=== PATIENT | female | born 1975 | race Caucasian/White ===

== ENCOUNTER → 2016-08-04 | Outpatient (CLI) | payer OTHER ==
[~2016-08-04] MED LIST: ALPRAZOLAM PO; AMITRYPTYLINE PO; ANTI-FUNGAL CR113 GM TOP; BUSPAR15 M2 PO; BUSPIRONE HCL10 MG PO; CARDIZEM60 M1 PO; CIPRO PO; CLINDACIN P1 EACH PO; DETROL PO; DIFLUCAN PO; FLEXERIL10 MG PO; GEODON80 MG PO; HUMULIN N100 U/ML SUBQ; INDERAL20 MG PO; LANTUS100 U/ML SUBQ; METHADONE HCL10 MG PO; METHADONE PO; MOTRIN20 MG/ML PO; NEURONTIN600 MG PO; NEURONTIN800 MG PO; NOVOLOG100 U/ML SUBQ; OMNICEF300 MG PO; PHENERGAN25 M1 PO; PREDNISONE10 MG PO
--- NOTE | ~2016-08-04 | PFT ---
[id number] [facility] [address]. [place], [place] [address] [id number] O MR#: [id number] NAME: JERARDO PAUL ROOM: SEX: F STUDY DATE/TIME: : 1975 AGE: STUDY DESCRIPTION: Attending Physician: Rekha Squires M.D. Referring Physician: Rekha Squires M.D. Primary Care Physician: Rekha Squires M.D. PULMONARY DIAGNOSTIC REPORT EXAM Pulmonary Function Test DESCRIPTION Spirometry is reviewed. FEV1 is 68, FVC is 80, ratio is 69. This is consistent with moderate air flow obstruction. No significant bronchodilator response. Lung volume consistent with air trapping. DLCO is substantially reduced. Dictated by... Joyti Franco/sarah TD: 08/18/2016 07:08 JOB #: [id number] PULMONARY DIAGNOSTIC REPORT
== END | disposition home or self-care (01) ==
LOC: CRC 10:41
DX: R06.02 Shortness of breath (principal)
CPT/HCPCS: 94060; 94726; 94729

== ENCOUNTER → 2016-08-10 | Outpatient (CLI) | payer OTHER ==
--- NOTE | ~2016-08-10 | CR63 ---
[facility] A Service of [facility] RADIOLOGY TEXT RESULTS PATIENT: JERARDO PAUL [id number] : [birth year] UNIT #: [id number] AGE: [address]: Rekha Squires MD SEX: F ORDER DR: [id number] [facility]. [place], [place] [address] [id number] O MR#: [id number] Acc #: [id number] NAME: JERARDO PAUL : 1975 SEX: F STUDY DATE/TIME: 08/10/2016 16:11 UNIT: [facility] ROOM: STUDY DESCRIPTION: CR Chest 2 View Attending Physician: Rekha Squires M.D. Referring Physician: Rekha Squires M.D. Ordering Physician: Rekha Squires M.D. Primary Care Physician: Rekha Squires M.D. MEDICAL IMAGING REPORT This report is preliminary unless electronic signature is present EXAM PA and lateral chest. DATE OF EXAM 08/10/2016 INDICATION Lung nodule follow up. Cough since November 2015. COMPARISON STUDIES This is compared with a chest x-ray 09/14/2010, and comparison CT chest with pulmonary embolus protocol from 10/27/2015. FINDINGS PA and lateral views of the chest were obtained. The heart size and vascularity are normal, and the lungs are clear except for perhaps a calcified granuloma of the right base. Bones are unremarkable. IMPRESSION No active disease. Dictated by... Dayton Phillips M.D. THIS IS AN ELECTRONICALLY VERIFIED REPORT Dayton Phillips M.D. at 08/11/2016 6:04 AM FERNANDO/lucinda TD: 08/10/2016 23:28 JOB #: [id number] MEDICAL IMAGING REPORT [facility] A Service of [facility] RADIOLOGY TEXT RESULTS PATIENT: JERARDO PAUL LOCATION: [facility] #: [id number] : [birth year] UNIT #: [id number] AGE: [address]: Rekha Squires MD SEX: F ORDER DR: PIA
== END | disposition home or self-care (01) ==
LOC: CRAD 15:58
DX: R91.1 Solitary pulmonary nodule (principal); Z20.89 Contact with and (suspected) exposure to other communicable diseases
CPT/HCPCS: 36415; 71020; 82785

== ENCOUNTER → 2016-08-30 | Outpatient (CLI) | payer OTHER ==
--- NOTE | ~2016-08-30 | CT57 ---
[facility] A Service of [facility] RADIOLOGY TEXT RESULTS PATIENT: JERARDO PAUL LOCATION: [facility] #: [id number] : [birth year] UNIT #: [id number] AGE: [address]: Rekha Squires MD SEX: F ORDER DR: [id number] [facility]. [place], [place] [address] [id number] O MR#: [id number] [facility] #: [id number] NAME: JERARDO PAUL : 1975 SEX: F STUDY DATE/TIME: 08/30/2016 16:11 UNIT: [facility] ROOM: STUDY DESCRIPTION: CT Chest Wo Cont Attending Physician: Rekha Squires M.D. Referring Physician: Rekha Squires M.D. Ordering Physician: Rekha Squires M.D. Primary Care Physician: Mejia Umanzor M.D. MEDICAL IMAGING REPORT This report is preliminary unless electronic signature is present EXAM CT chest without contrast INDICATION Follow up pulmonary opacities and adenopathy. PROCEDURE Unenhanced CT of the chest. COMPARISON 10/27/2015. TECHNIQUE This CT examination was performed with one or more of the following radiation dose reduction techniques: automatic exposure control, adjustment of mA and/or kV according to patient size, and iterative reconstruction. FINDINGS Emphysema. Redemonstration of predominantly peripheral ground-glass opacity and suggestion of mild interstitial thickening/scarring. There is no dense consolidation. There is no pleural fluid. No pneumothorax. The previously demonstrated adenopathy is less apparent on this study. It may in part be related to the lack of contrast. No acute findings in the included upper abdomen. No aggressive appearing bone lesion. IMPRESSION 1. No acute findings. 2. Redemonstration of mild peripheral ground-glass opacity and mild interstitial thickening or scarring. Appearance is very similar to the previous study. It is slightly improved in the lung bases. 3. No new dense consolidation. 4. Background emphysema. [facility] A Service of [facility] RADIOLOGY TEXT RESULTS PATIENT: JERARDO PAUL LOCATION: [facility] #: [id number] : [birth year] UNIT #: [id number] AGE: [address]: Rekha Squires MD SEX: F ORDER DR: 5. The previously demonstrated hilar and mediastinal lymph nodes are slightly smaller. Dictated by... Cole Nathan M.D. THIS IS AN ELECTRONICALLY VERIFIED REPORT Cole Nathan M.D. at 09/01/2016 9:38 AM VICENTE/chacorta TD: 08/31/2016 09:41 JOB #: [id number] MEDICAL IMAGING REPORT Page 1 of 1 COPY
== END | disposition home or self-care (01) ==
LOC: CCAT 15:39
DX: R91.1 Solitary pulmonary nodule (principal); J43.9 Emphysema, unspecified; J98.4 Other disorders of lung
CPT/HCPCS: 71250